=== PATIENT | male | born 1940 | race Hispanic/Latino ===

== ENCOUNTER 2021-09-03 17:03 | Emergency (ER) | payer MEDICARE, OTHER ==
[~2021-09-03] VITALS: Ht 180.3 cm; Wt 83.9 kg
[2021-09-03] MEDS ORDERED: CEPHALEXIN500 MG PO (18:19)
== END 2021-09-03 18:35 | disposition home or self-care (01) ==
LOC: FSED 17:23
DX: U07.1 COVID-19 (principal); R05.9 Cough, unspecified; R42 Dizziness and giddiness; G20 Parkinson's disease; R53.1 Weakness; I10 Essential (primary) hypertension; K21.9 Gastro-esophageal reflux disease without esophagitis
CPT/HCPCS: 70450; 71045; 99284; U0002; 93005